=== PATIENT | female | born 1970 | race Asian ===

== ENCOUNTER 2018-12-10 11:02 | Day surgery (SDC) | payer BC ==
[~2018-12-10 11:02] MED LIST: HYDR-3164 PO; HYDROmorphone 2 MG/ML VIAL IV PRN; IV RINGERS,LACTATED 1000ML 1,000 ML IV SCH; LIDOCAINE 1% PF 2 ML VIAL. ID PRN; MORPHINE SULFATE 4 MG/ML VIAL. IV PRN; NAPR-514 PO; NAPR-683 PO; ONDANSETRON PF 4 MG/2 ML VIAL. IV PRN; PROCHLORPERAZINE 10 MG/2 ML VIAL. IV PRN; fentaNYL PF VIAL 100 MCG/2 ML VIAL IV PRN
[2018-12-10] MEDS ORDERED: MIDAZOLAM HCL/PF 2 MG/2 ML VIAL. ONE (13:31)
[2018-12-10] MEDS ORDERED: PROPOFOL 20 ML IV ONE (13:31)
[2018-12-10] MEDS ORDERED: FAMOTIDINE 20 MG/2 ML VIAL ONE (13:31)
[2018-12-10] MEDS ORDERED: LIDOCAINE 2% PF Vial for OR 5 ML VIAL. ONE (13:31)
[2018-12-10] MEDS ORDERED: ONDANSETRON PF 4 MG/2 ML VIAL. ONE (13:31)
[2018-12-10] MEDS ORDERED: fentaNYL PF VIAL 100 MCG/2 ML VIAL ONE ×2 (13:31→14:27)
[2018-12-10] MEDS ORDERED: ePHEDrine PF IN SALINE 50 MG/5 ML DISP.SYRIN IV ONE (13:53)
[2018-12-10] MEDS ORDERED: OXYTOCIN 10 UNIT/ML VIAL. ONE ×2 (14:09)
[2018-12-10] MEDS ORDERED: SEVOFLURANE 31 TO 60 MINUTES. IH ONE (14:12)
--- NOTE | 2018-12-10 14:17 | PDOC ---
BRIEF OPERATIVE NOTE Date: Dec 10, 2018 Pre-Op Diagnosis Incomplste AB Post-Op Diagnosis Same Procedure Performed Suction D and C Surgeon Javid Anesthesia Type: General Blood Loss 100cc Specimens Obtained POC Complications None SERGIO RIVERA MD Dec 10, 2018 14:17
[2018-12-10] MEDS ORDERED: DOXY100C2 PO (14:22)
[2018-12-10] MEDS ORDERED: NAPR-514 PO (14:22)
[2018-12-10] MEDS ORDERED: HYDR-3164 PO (14:22)
[2018-12-10] MEDS ORDERED: METH0.2T36 PO (14:22)
--- NOTE | 2018-12-10 14:32 | OP ---
DATE OF SURGERY: 12/10/2018 PREOPERATIVE DIAGNOSIS: Incomplete . POSTOPERATIVE DIAGNOSIS: Incomplete . PROCEDURE: Suction D and C. SURGEON: Cortes Hua M.D. TEACHING AIDE: None. ANESTHESIA: General. ESTIMATED BLOOD LOSS: 100 mL. SPECIMENS: Products of conception. COMPLICATIONS: None. CONDITION: Stable. DESCRIPTION OF PROCEDURE: After risks, benefits, indications, alternatives discussed in detail with the patient, the patient was brought to OR theater, placed in the dorsal lithotomy position in Dominic stirru. After adequate general anesthesia, the patient was prepped and draped in usual sterile manner. Exam under anesthesia was performed. Uterus about 8-9 week size, anteflexed. Cervix was opened to 11 Hegar dilator. The cervix was grasped with single tooth tenaculum after the posterior weighted speculum had been placed. Cervix was dilated up to #11, #12 Hegar dilator. A #11 suction curved cannula was placed through the cervical os. Gentle suction curettage was done in all quadrants. Products of conception was seen going through the clear tubing. Sharp curettage was then performed and usual cry was heard. Suction cannula was again placed. No further products of conception were noted. The tubing was cleared with saline. Procedure was terminated. Single tooth tenaculum was removed. Puncture sites were hemostatic. The posterior weighted speculum was removed. Vaginal vault was wiped clean of any debris. Sponge, needle and instrument counts were correct x 2 per nursing staff. The patient went to postop anesthesia recovery in stable condition. CORTES HUA MD DR: SATISH/lavelle JOB#: [id number] / [id number]
[2018-12-10 14:48] VITALS: BP 121/64
[2018-12-10] MEDS: fentaNYL PF VIAL 100 MCG/2 ML VIAL IV PRN ×2 (14:55→15:01)
[2018-12-10] MEDS ORDERED: NAPROXEN 500 MG TABLET PO PRN (15:00)
--- NOTE | 2018-12-13 17:09 | PATHOLOGY ---
[facility] Accession Number: [id number] . 01 Material submitted: . PRODUCTS OF CONCEPTION . 01 Clinical history: . Incomplete . . 02 Diagnosis: Uterine contents, suction D and C: - Products of conception, comprised of degenerating and necrotic immature chorionic villi with intervillous hemorrhage, and predominant segments of decidua and hypersecretory endometrium showing focal hemorrhage, necrosis, and acute inflammation. (JPM/db; 12/13/2018) LBQ/12/13/2018 . 02 Electronically signed: . Otis Siu MD, Pathologist NPI- [id number] . 01 Gross description: . Received in formalin labeled "Segun Dunham, products of conception" is a 4 g, 4.5 x 2.6 x 1.0 cm aggregate of mathew-brown friable soft tissue fragments. No parts are identified. The specimen is submitted entirely in cassettes A1-A3. ([facility] [place]; 12/12/2018) SYC/SYC . 02 Pathologist provided ICD-10: O03.4, O02.89 . 02 CPT . 725003 Specimen Comment: A courtesy copy of this report has been sent to Specimen Comment: [phone]. Specimen Comment: Report sent to Performed at: 01 [facility] [address], [place] [id number] MD Uli Vieira MD Phone: [phone] Performed at: 02 [facility] [address] [place], [place] [id number] MD Otis Siu MD Phone: [phone]
== END 2018-12-10 15:45 | disposition home or self-care (01) ==
LOC: SURG 11:02
PROVIDERS: ATTEND Specialist
DX: O03.4 Incomplete spontaneous abortion without complication (principal); Z3A.09 9 weeks gestation of pregnancy; Z98.890 Other specified postprocedural states
CPT/HCPCS: 59812; 88305; A7015; C1769; J2001; J2250; J2405; J2590; J2704; J3010; J3490